=== PATIENT | male | born 1960 | race Caucasian/White ===

== ENCOUNTER 2020-06-13 03:17 | Emergency (ER) | payer OTHER ==
[2020-06-13] MEDS ORDERED: Morphine 4 MG/ML VIAL ONE ×2 (03:33→04:08)
[2020-06-13] MEDS ORDERED: Ondansetron PF 4 MG/2 ML Vial ONE (03:33)
[2020-06-13 03:55] LABS: #Monocytes 0.8 thou/uL (0.11-0.59); #Neutrophils 11.6 thou/uL (1.40-6.50); %Basophils 0.1 % (0.0-1.0); %Eosinophils 0.3 % (0.0-10.0); %Lymphocytes 7.4 % (21.0-51.0); %Neutrophils 86.2 % (42.0-75.0); Hemoglobin 15.5 g/dL (14.0-18.0); Mean Corpuscular HGB CONC 35.1 g/dL (32.0-36.0); Mean Corpuscular Hemoglobin 32.1 pg (27.0-31.0); Mean Corpuscular Volume 91.3 fL (78.0-98.0); Mean Platelet Volume 7.3 fL (7.4-10.4); Platelet Count 265 thou/uL (130-400); RBC Distribution Width 11.8 % (11.5-14.5); Red Blood Cell (RBC) Count 4.82 mill/uL (4.70-6.10); White Blood Cell (WBC) Count 13.4 thou/uL (4.8-10.8)
[2020-06-13] MEDS ORDERED: Ketorolac Tromethamine 30 MG/ML VIAL ONE (04:08)
[2020-06-13 04:15] LABS: ALT (SGPT) 53 U/L (8-55); AST (SGOT) 27 U/L (5-34); Albumin 4.5 g/dL (3.5-5.0); Alkaline Phosphatase 59 U/L (40-110); Anion Gap 17 mmol/L (10-20); BUN (Urea Nitrogen) 18 mg/dL (8.4-25.7); Bilirubin, Total 0.4 mg/dL (0.2-1.2); Calc. Creatinine Clearance 0 mL/min (70-130); Calcium 9.2 mg/dL (7.8-10.44); Carbon Dioxide 27 mmol/L (22-29); Chloride 101 mmol/L (98-107); Globulin 3.1 g/dL (2.4-3.5); Glucose 147 mg/dL (70-105); Lipase 18 U/L (8-78); Potassium 4.1 mmol/L (3.5-5.1); Protein, Total 7.6 g/dL (6.0-8.3); Sodium 141 mmol/L (136-145)
[2020-06-13 05:28] LABS: Bacteria/HPF None Seen HPF (None Seen); Bilirubin Negative (Negative); Blood, Urine Trace (Negative); Clarity Clear (Clear); Glucose, Urine (Dipstick) Normal (Negative); Ketone, Urine Negative (Negative); Leukocyte Negative Leu/uL (Negative); Nitrite Negative (Negative); Protein, Urine (Dipstick) Negative (Neg-Trace); RBC/HPF 0-3 HPF (0-3); Specific Gravity, Urine 1.027 (1.002-1.036); Squamous Epithelial None Seen HPF (0-3); Urobilinogen Normal mg/dL (Less than 2); WBC/HPF 0-3 HPF (0-3); pH, Urine 7.5 (5.0-9.0)
--- NOTE | 2020-06-13 07:59 | CT ---
PRELIMINARY REPORT/DIRECT RADIOLOGY/EMERGENCY AFTER HOURS PROCEDURE: EXAM: CT Abdomen and Pelvis with Intravenous Contrast CLINICAL HISTORY: 59-year-old with a past medical history of irritable bowel syndrome presents for 2- day history of worsening abdominal pain that acutely worsened in the last 4 hours. He rates the pain as an 8 of 10, constant, at its worst radiates down into his groin. He states he feels that he h as chills. He denies fevers at home. The pain is worsened by movement and standing up straight. It is not relieved by anything. He has not had pain like this before. TECHNIQUE: Axial computed tomography images of the abdomen and pelvis with intravenous contrast. CONTRAST: With; ISOVUE 370,100mL COMPARISON: None provided. FINDINGS: LUNG BASES: No basilar airspace consolidation or pleural effusion. LIVER: Unremarkable. GALLBLADDER AND BILE DUCTS: Unremarkable. No calcified stone. No ductal dilation. PANCREAS: Unremarkable. SPLEEN: Unremarkable. ADRENAL GLANDS: Unremarkable. KIDNEYS, URETERS, AND BLADDER: Multiple renal stones bilaterally. Moderate hydronephrosis on the rig ht with 2 distal ureteral stones at the UVJ measuring around 4-5 mm each. The more distal stone is slightly larger by a millimeter. No obstructive changes on the left. Some small cortical cysts and likely some minimal areas of parenchymal scarring bilaterally, a little more conspicuous on the left. STOMACH AND BOWEL: No obstruction. No wall thickening. No CT evidence of colitis or acute diverticuli tis. APPENDIX: Normal. PERITONEUM: No free fluid. No free air. LYMPH NODES: No lymphadenopathy. VASCULATURE: No aortic aneurysm. BONES: No fracture or suspicious osseous abnormality. ABDOMINAL WALL AND SOFT TISSUES: Unremarkable. IMPRESSION: 2 distal ureteral stones on the right with moderate hydronephrosis. Bilateral nephrolith iasis. ELECTRONICALLY SIGNED BY: Taj Cazares MD Jun 13, 2020 4:42:02 AM [employer] FINAL REPORT CT ABDOMEN AND PELVIS WITH CONTRAST: History: Abdominal pain. Comparison: None.. Findings/impression: Concordant with the preliminary report. Transcribed Date/Time: 06/13/2020 8:04 AM
[2020-06-13] MEDS ORDERED: Iopamidol-370 76% 500 ML 1 ML ONE (09:13)
== END 2020-06-13 06:57 | disposition home or self-care (01) ==
LOC: ERS 03:17
DX: N13.2 Hydronephrosis with renal and ureteral calculous obstruction (principal)
CPT/HCPCS: 74177; 80053; 81003; 81015; 83690; 85025; 96374; 96375; 96376; J1885; J2270; J2405; Q9967